=== PATIENT | male | born 1995 | race American Indian/Alaskan Native ===

== ENCOUNTER 2018-01-09 19:54 | Inpatient (IN) | payer MEDICAID, OTHER ==
[2018-01-09] MEDS ORDERED: HumuLIN R IV ONE (20:05)
[2018-01-09] MEDS ORDERED: NACL 0.9% 1000 ML 2,000 ML IV ONE (20:05)
--- NOTE | 2018-01-09 20:21 | Emergency Department Report ---
ED General Adult HPI - General Chief complaint: Hyperglycemia Stated complaint: HYPERGLYCEMIC Time Seen by Provider: 01/09/18 20:00 Source: patient Mode of arrival: Ambulatory Limitations: No Limitations - History of Present Illness Initial comments: Mr. Julien is 22 yo male who presents in diabetic crisis. Mr. Julien was admitted on 12/28 and discharged 12/30 for HHS and new onset diabetes. He has been ill for approximately one week. He gives limited hx due to respiratory distress and severe illness. EMS brought patient to ED. Previous EMR under medical record #[id number] - Related Data Home Medications Medication Instructions Recorded Confirmed Last Taken Insulin Glargine,Hum.rec.anlog 15 unit SQ BID 01/09/18 01/09/18 Unknown [Lantus] Metformin HCl 500 mg PO BID 01/09/18 01/09/18 Unknown Allergies Allergy/AdvReac Type Severity Reaction Status Date / Time No Known Allergies Allergy Unverified 07/05/14 13:13 ED Review of Systems ROS: Stated complaint: HYPERGLYCEMIC Other details as noted in HPI Comment: Unobtainable due to pts medical conditions ED Past Medical Hx - Past Medical History Hx Diabetes: Yes - Social History Smoking Status: Never Smoker Substance Use Type: None - Medications Home Medications: Home Medications Medication Instructions Recorded Confirmed Last Taken Type Insulin Glargine,Hum.rec.anlog 15 unit SQ BID 01/09/18 01/09/18 Unknown History [Lantus] Metformin HCl 500 mg PO BID 01/09/18 01/09/18 Unknown History ED Physical Exam - General Limitations: No Limitations General appearance: alert, in distress, other (Kussmaul Respirations) - Head Head exam: Present: atraumatic, normocephalic - Eye Eye exam: Present: normal appearance, PERRL - ENT ENT exam: Present: mucous membranes dry, normal external ear exam - Neck Neck exam: Present: normal inspection. Absent: tenderness, meningismus - Respiratory Respiratory exam: Present: normal lung sounds bilaterally, respiratory distress , accessory muscle use. Absent: wheezes, rales, rhonchi - Cardiovascular Cardiovascular Exam: Present: normal rhythm, tachycardia, normal heart sounds. Absent: systolic murmur, diastolic murmur, rubs, gallop - GI/Abdominal GI/Abdominal exam: Present: soft, normal bowel sounds, other (abdominal retractions). Absent: distended, tenderness, guarding, rebound - Rectal Rectal exam: Present: deferred - Extremities Exam Extremities exam: Present: normal inspection - Back Exam Back exam: Present: normal inspection - Neurological Exam Neurological exam: Present: alert, oriented X3 - Psychiatric Psychiatric exam: Present: flat affect - Skin Skin exam: Present: warm, dry, intact, normal color. Absent: rash ED Course Vital Signs 01/09/18 01/09/18 01/09/18 20:03 20:04 20:41 Pulse Rate 138 H 136 H Respiratory 46 H 22 Rate Blood Pressure O2 Sat by Pulse 99 99 Oximetry 01/09/18 21:01 Pulse Rate 133 H Respiratory 35 H Rate Blood Pressure 155/53 O2 Sat by Pulse 99 Oximetry ED Medical Decision Making - Lab Data Result diagrams: 01/09/18 20:15 01/09/18 20:15 - EKG Data Rate: tachycardia - EKG Data 01/09/18 21:18 Time obtained 2051 sinus tachycardia rate 130 bpm nl axis increased amplitude T waves no ST elevation 01/09/18 21:24 - Radiology Data Radiology results: report reviewed pCXR: no acute process - Medical Decision Making Mr. Julien is a 22 yo male who has new onset diabetes, DKA after recent hospitalization. Elevated WBC noted without focus of infection TERRANCE with hyperkalemia addressed with insulin. Dr. Camarena silver designer consulted Dr. Montesinos hospitalist agreed to admit Critical Care Time: Yes Critical care time in (mins) excluding proc time.: 40 Critical care attestation.: If time is entered above; I have spent that time in minutes in the direct care of this critically ill patient, excluding procedure time. Critical Care Time: 40 minutes of critical care time excluding procedures were used in the care of the patient. Patient required multiple assessments and interventions. I reviewed the electronic medical record. I spoke with consultants involved in the care of the patient. ED Disposition Clinical Impression: DKA (diabetic ketoacidoses), TERRANCE (acute kidney injury) Disposition: OP ADMIT IP TO THIS HOSP Is pt being admited?: Yes Does the pt Need Aspirin: No Condition: Stable
[2018-01-09 20:24] LABS: Mean Corpuscular HGB Conc 30 % (32-34); Mean Corpuscular Hemoglobin 28 pg (28-32); Mean Corpuscular Volume 95 fl (84-94); Platelet Count 306 K/mm3 (140-440); Red Blood Count 5.47 M/mm3 (3.65-5.03); Red Cell Distribution Width 15.4 % (13.2-15.2)
[2018-01-09 20:39] LABS: Hematocrit 51.9 % (35.5-45.6); Hemoglobin 15.4 gm/dl (11.8-15.2)
[2018-01-09 20:41] LABS: Albumin 4.4 g/dL (3.9-5)
[2018-01-09 20:58] LABS: Bilirubin,Urine NEG (Negative); Blood,Urine MOD (Negative); Color,Urine Straw (Yellow); Mucus,Urine FEW /HPF; Urobilinogen,Urine < 2.0 mg/dL (<2.0)
--- NOTE | 2018-01-09 20:59 | XRay Report ---
FINAL REPORT PROCEDURE: XR CHEST 1V AP TECHNIQUE: Chest radiograph anteroposterior view. CPT 34902 HISTORY: DKA dyspnea COMPARISON: No prior studies are available for comparison. FINDINGS: Heart: Normal. Mediastinum/Vessels: Normal. Lungs/Pleural space: Normal. Bony thorax: No acute osseous abnormality. Life support devices: None. IMPRESSION: No acute cardiopulmonary abnormality.
[2018-01-09] MEDS ORDERED: CALCIUM GLUCONATE 1,000 MG in NACL 0.9% 100 ML IV ONE (21:25)
[2018-01-09 21:48] LABS: Basophils % (Manual) 0 % (0.0-1.8); Total Cells Counted 100
[2018-01-09 21:49] LABS: RBC Morphology Normal
[2018-01-09] MEDS ORDERED: NACL 0.9% 1000 ML 1,000 ML IV ONE (21:54)
[2018-01-09] MEDS ORDERED: SODIUM BICARBONATE IV ONE ×3 (21:55→23:02)
[2018-01-09] MEDS ORDERED: ZOFRAN IV PRN (21:55)
[2018-01-09] MEDS ORDERED: SODIUM CHLORIDE FLUSH SYRINGE 10 ML IV PRN (21:55)
[2018-01-09] MEDS ORDERED: MORPHINE IV PRN (21:55)
[2018-01-09] MEDS ORDERED: TYLENOL PO PRN (21:55)
[2018-01-09] MEDS ORDERED: D50W (25GM) Syringe IV PRN (21:56)
--- NOTE | 2018-01-09 21:59 | History and Physical Report ---
History of Present Illness Date of examination: 01/09/18 History of present illness: 22-year-old man with a history of hypertension, diabetes mellitus emergency room with complaints of nausea vomiting, decreased energy 2 days. He's had multiple episodes of nausea and vomiting, stating he's compliant with his medication. Also complaining of abdominal pain in the epigastric area which she describes as sharp, constant pain, intensity 6/10, no radiation, he cannot identify exacerbating or relieving factors. Review of systems Constitutional: no weight loss, chills, fever Ears, eyes, nose, mouth and throat: no nasal congestion, no nasal discharge, no sinus pressure, no vision change, no red eye. Neck: No neck pain or rigidity. Cardiovascular: no chest pain, palpitations Respiratory: no cough, shortness of breath Gastrointestinal: no hematochezia Genitourinary : no frequency , no hematuria Musculoskeletal: no joint swelling or muscle ache Integumentary: no rash, no pruritis Neurological: no parathesias, no numbness, no focal weakness Endocrine: no cold or heat intolerance, no polyuria or polydipsia Hematologic/Lymphatic: no easy bruising, no easy bleeding, no gland swelling Allergic/Immunologic: no urticaria, no angioedema. PAST MEDICAL HISTORY: Hypertension, diabetes PAST SURGICAL HISTORY: None SOCIAL HISTORY: No alcohol, no drugs, tobacco FAMILY HISTORY: Hypertension, diabetes Medications and Allergies Allergies Allergy/AdvReac Type Severity Reaction Status Date / Time No Known Allergies Allergy Unverified 07/05/14 13:13 Home Medications Medication Instructions Recorded Confirmed Last Taken Type Insulin Glargine,Hum.rec.anlog 15 unit SQ BID 01/09/18 01/09/18 Unknown History [Lantus] Metformin HCl 500 mg PO BID 01/09/18 01/09/18 Unknown History Active Meds: Active Medications Acetaminophen (Tylenol) 650 mg PO Q4H PRN PRN Reason: Pain MILD(1-3)/Fever >100.5/DOW Dextrose (D50w (25gm) Syringe) 0 ml IV ONCE PRN PRN Reason: Hypoglycemia Enoxaparin Sodium (Lovenox) 30 mg SUB-Q QDAY ANGÉLICA Insulin Human Regular 100 (units/ Sodium Chloride) 100 mls @ 10 mls/hr IV TITR ANGÉLICA; Protocol Sodium Chloride (Nacl 0.9% 1000 Ml) 1,000 mls @ 500 mls/hr IV DIRECT ANGÉLICA Sodium Chloride (Nacl 0.9% 1000 Ml) 1,000 mls @ 150 mls/hr IV DIRECT ANGÉLICA Sodium Chloride (Nacl 0.9% 1000 Ml) 1,000 mls @ 999 mls/hr IV ONCE ONE Stop: 01/09/18 22:54 Last Admin: 01/09/18 21:58 Dose: 999 mls/hr Potassium Chloride/Dextrose/Sod Cl (D5w/0.45% Nacl/Kcl 20 Meq) 20 meq in 1,000 mls @ 150 mls/hr IV DIRECT ANGÉLICA Ceftriaxone Sodium (Rocephin/Ns 1 Gm/50 Ml) 1 gm in 50 mls @ 100 mls/hr IV Q24HR ANGÉLICA; Protocol Morphine Sulfate (Morphine) 2 mg IV Q4H PRN PRN Reason: Pain, Moderate (4-6) Ondansetron HCl (Zofran) 4 mg IV Q4H PRN PRN Reason: Nausea And Vomiting Sodium Bicarbonate (Sodium Bicarbonate) 50 meq IV ONCE ONE Stop: 01/09/18 21:56 Sodium Chloride (Sodium Chloride Flush Syringe 10 Ml) 10 ml IV BID ANGÉLICA Sodium Chloride (Sodium Chloride Flush Syringe 10 Ml) 10 ml IV PRN PRN PRN Reason: LINE FLUSH Exam - Physical Exam Narrative exam: Gen. appearance: Patient lying in bed, no apparent distress HEENT: Normocephalic, atraumatic, pupils equally round and reactive to light, extraocular movement intact, and no sclericterus,. No JVD or thyromegaly or nodule,neck supple, no carotid bruit ,mucous membranes moist, no exudate or erythema Heart: S1, S2, regular rate and rhythm Lungs: Clear bilaterally, breathing comfortable Abdomen: Positive bowel sounds, non-tender, nondistended, no organomegaly Extremity:no edema cyanosis, clubbing Skin: no rash, dry, warm Neuro: Oriented 3, cranial nerves II-12 intact, speech is fluent, motor and sensory intact - Constitutional Vitals: Temp Pulse Resp BP Pulse Ox 133 H 35 H 155/53 99 01/09/18 21:01 01/09/18 21:01 01/09/18 21:01 01/09/18 21:01 Results - Labs CBC & Chem 7: 01/09/18 20:15 01/10/18 00:11 Labs: Abnormal lab results 01/09/18 01/09/18 01/09/18 Range/Units 20:02 20:15 20:15 WBC 25.1 H (4.5-11.0) K/mm3 RBC 5.47 H (3.65-5.03) M/mm3 Hgb 15.4 H (11.8-15.2) gm/dl Hct 51.9 H (35.5-45.6) % MCV 95 H (84-94) fl MCHC 30 L (32-34) % RDW 15.4 H (13.2-15.2) % Seg Neuts % (Manual) 83.0 H (40.0-70.0) % Lymphocytes % (Manual) 9.0 L (13.4-35.0) % Seg Neutrophils # Man 20.8 H (1.8-7.7) K/mm3 Monocytes # (Manual) 1.8 H (0.0-0.8) K/mm3 POC ABG pH 7.040 L (7.35-7.45) POC ABG pCO2 6.6 L (35-45) POC ABG pO2 155 H (80-105) Sodium (137-145) mmol/L Potassium (3.6-5.0) mmol/L Chloride (98-107) mmol/L Carbon Dioxide (22-30) mmol/L BUN (9-20) mg/dL Creatinine (0.8-1.5) mg/dL Glucose (75-100) mg/dL POC Glucose (70-105) Hemoglobin A1c 10.4 H (4-6) % Calcium (8.4-10.2) mg/dL Phosphorus (2.5-4.5) mg/dL Magnesium (1.7-2.3) mg/dL Alkaline Phosphatase (35-129) units/L Total Protein (6.3-8.2) g/dL 01/09/18 01/09/18 01/09/18 Range/Units 20:15 20:15 21:55 WBC (4.5-11.0) K/mm3 RBC (3.65-5.03) M/mm3 Hgb (11.8-15.2) gm/dl Hct (35.5-45.6) % MCV (84-94) fl MCHC (32-34) % RDW (13.2-15.2) % Seg Neuts % (Manual) (40.0-70.0) % Lymphocytes % (Manual) (13.4-35.0) % Seg Neutrophils # Man (1.8-7.7) K/mm3 Monocytes # (Manual) (0.0-0.8) K/mm3 POC ABG pH (7.35-7.45) POC ABG pCO2 (35-45) POC ABG pO2 (80-105) Sodium 133 L (137-145) mmol/L Potassium 6.2 H* (3.6-5.0) mmol/L Chloride 85.1 L (98-107) mmol/L Carbon Dioxide 5 L* (22-30) mmol/L BUN 36 H (9-20) mg/dL Creatinine 2.0 H (0.8-1.5) mg/dL Glucose 768 H* (75-100) mg/dL POC Glucose > 500 H (70-105) Hemoglobin A1c (4-6) % Calcium 11.0 H (8.4-10.2) mg/dL Phosphorus 7.50 H (2.5-4.5) mg/dL Magnesium 3.40 H (1.7-2.3) mg/dL Alkaline Phosphatase 139 H (35-129) units/L Total Protein 9.7 H (6.3-8.2) g/dL Assessment and Plan Assessment DKA Abdominal pain SIRS Renal insufficiency, probably acute Severe metabolic reveals acidosis Dehydration Hypertension Plan Admit medicine DKA protocol with insulin drip Start IV fluids, monitor serial chemistries, fingersticks Check CAT scan of the abdomen and pelvis Start IV Rocephin, follow cultures Consult critical care DVT prophylaxis
[2018-01-09] MEDS ORDERED: D5W/0.45% NACL/KCL 20 MEQ 20 MEQ/1,000 ML BAG IV SCH (22:00)
[2018-01-09] MEDS ORDERED: NACL 0.9% 1000 ML 1,000 ML IV SCH ×3 (22:00→23:00)
[2018-01-09] MEDS ORDERED: ROCEPHIN/NS 1 GM/50 ML 1 GM/50 ML BAG IV SCH (22:00)
[2018-01-09] MEDS: HumuLIN R 100 UNITS in NACL 0.9% 99 ML IV SCH (22:02)
--- NOTE | 2018-01-09 22:59 | Cat Scan Report ---
FINAL REPORT PROCEDURE: CT ABDOMEN PELVIS WO CON TECHNIQUE: Computerized axial tomography of the abdomen and pelvis was performed without intravenous contrast. This study is performed without intravascular contrast material and its sensitivity for abdominal and pelvic pathology, including neoplasms, inflammation, abscess, free fluid, thrombosis, arterial dissection and infarction, is reduced compared with a contrast enhanced study. HISTORY: abd pain COMPARISON: No prior studies are available for comparison. FINDINGS: Limited study due to breathing artifacts. Liver, spleen, pancreas and adrenal glands are within normal limits. Bilateral kidneys demonstrate normal density without calculi or hydronephrosis. Aorta is of normal caliber. There is no free fluid or free air. Gallbladder is unremarkable. Small bowel loops are within normal limits. Urinary bladder is moderately distended. Appendix is normal. IMPRESSION: Limited study due to breathing artifacts. No obvious acute intra-abdominal or pelvic pathology. Vertebral height is normal..
[2018-01-09] MEDS ORDERED: D5/0.45NS 1,000 ML IV SCH (23:00)
[2018-01-09] MEDS: SODIUM CHLORIDE FLUSH SYRINGE 10 ML IV SCH (23:06)
[2018-01-09] MEDS ORDERED: NACL 0.9% 1000 ML 1,000 ML ONE (23:46)
[2018-01-10 00:32] LABS: BUN/Creatinine Ratio 21; Blood Urea Nitrogen 34 mg/dL (9-20); Calcium 9.2 mg/dL (8.4-10.2); Hemolysis Index 61
[2018-01-10 00:44] LABS: BUN/Creatinine Ratio 21; Blood Urea Nitrogen 34 mg/dL (9-20); Calcium 9.5 mg/dL (8.4-10.2); Hemolysis Index 25
[2018-01-10] MEDS ORDERED: SODIUM BICARBONATE IV ONE ×3 (01:47→02:00)
[2018-01-10 02:20] LABS: BUN/Creatinine Ratio 22; Blood Urea Nitrogen 33 mg/dL (9-20); Calcium 9.9 mg/dL (8.4-10.2); Hemolysis Index 32
[2018-01-10] MEDS: HumuLIN R 100 UNITS in NACL 0.9% 99 ML IV SCH ×2 (03:34→22:56)
[2018-01-10 04:09] LABS: Hematocrit 43.3 % (35.5-45.6); Mean Corpuscular HGB Conc 32 % (32-34); Mean Corpuscular Hemoglobin 28 pg (28-32); Mean Corpuscular Volume 86 fl (84-94); Platelet Count 241 K/mm3 (140-440); Red Blood Count 5.03 M/mm3 (3.65-5.03); Red Cell Distribution Width 13.3 % (13.2-15.2)
[2018-01-10 04:21] LABS: BUN/Creatinine Ratio 21; Blood Urea Nitrogen 29 mg/dL (9-20); Hemolysis Index 10
[2018-01-10 05:09] LABS: Band Neutrophils # (Manual) 0.6 K/mm3; Basophils % (Manual) 0 % (0.0-1.8); Eosinophils % (Manual) 0 % (0.0-4.3); Large Platelets Rare; Platelet Estimate Cons; RBC Morphology Normal; Total Cells Counted 100
[2018-01-10] MEDS: D5/0.45NS 1,000 ML IV SCH ×2 (06:52→15:27)
[2018-01-10 07:45] LABS: BUN/Creatinine Ratio 21; Blood Urea Nitrogen 27 mg/dL (9-20); Hemolysis Index 23
[2018-01-10] MEDS ORDERED: LOVENOX SUB-Q SCH (10:00)
[2018-01-10] MEDS: LOVENOX SUB-Q SCH (11:36)
[2018-01-10] MEDS: ZESTRIL PO SCH (11:36)
[2018-01-10] MEDS: SODIUM CHLORIDE FLUSH SYRINGE 10 ML IV SCH ×2 (11:36→22:58)
--- NOTE | 2018-01-10 16:01 | Progress Note ---
Assessment and Plan Assessment and plan: 22-year-old man with a history of hypertension, diabetes mellitus emergency room with complaints of nausea vomiting, decreased energy 2 days. He's had multiple episodes of nausea and vomiting, stating he's compliant with his medication. Also complaining of abdominal pain in the epigastric area which she describes as sharp, constant pain, intensity 6/10, no radiation, he cannot identify exacerbating or relieving factors. DKA Abdominal pain SIRS Renal insufficiency, probably acute Severe metabolic reveals acidosis Dehydration Hypertension Plan Admit medicine DKA protocol with insulin drip Start IV fluids, monitor serial chemistries, fingersticks Check CAT scan of the abdomen and pelvis Start IV Rocephin, follow cultures Consult critical care DVT prophylaxis History Interval history: Patient was seen and examined. Follow-up on current diagnosis of dka. Overnight uneventful. Patient denies any chest pain, shortness breath, nausea/vomiting or severe headaches. Imaging, nursing note, chart, labs and old chart reviewed. Discussed with patient. Hospitalist Physical - Physical exam Narrative exam: GEN: WDWN, NAD, Awake, Alert, Orientated HEENT: NCAT, EOMI, PERRL, OP Clear NECK: supple, no adenopathy, no thyromegaly, no JVD CVS/HEART: RRR, normal S1S2, pulses present bilaterally CHEST/LUNGS: CTA B, Symmetrical chest expansion, good air entry bilaterally GI/Abdomen: soft, NTND, good bowel sounds, no guarding or rebound /Bladder: no suprapubic tenderness, no CVA or paraspinal tenderness EXT/Skin: no c/c/e, no obvious rash MSK: FROM x 4 Neuro: CN 2-12 grossly intact, no new focal deficits Psych: calm - Constitutional Vitals: Temp Pulse Resp BP Pulse Ox 101 H 17 125/76 99 01/10/18 11:36 01/10/18 08:01 01/10/18 11:36 01/10/18 08:01 Results - Labs CBC & Chem 7: 01/10/18 Unknown 01/10/18 05:59 Labs: Laboratory Last Values WBC 19.3 K/mm3 (4.5-11.0) H 01/10/18 Unknown RBC 5.03 M/mm3 (3.65-5.03) 01/10/18 Unknown Hgb 14.0 gm/dl (11.8-15.2) 01/10/18 Unknown Hct 43.3 % (35.5-45.6) D 01/10/18 Unknown MCV 86 fl (84-94) 01/10/18 Unknown MCH 28 pg (28-32) 01/10/18 Unknown MCHC 32 % (32-34) 01/10/18 Unknown RDW 13.3 % (13.2-15.2) 01/10/18 Unknown Plt Count 241 K/mm3 (140-440) 01/10/18 Unknown Add Manual Diff Complete 01/10/18 Unknown Total Counted 100 01/10/18 Unknown Seg Neuts % (Manual) 89.0 % (40.0-70.0) H 01/10/18 Unknown Band Neutrophils % 3.0 % 01/10/18 Unknown Lymphocytes % (Manual) 7.0 % (13.4-35.0) L 01/10/18 Unknown Reactive Lymphs % (Man) 0 % 01/10/18 Unknown Monocytes % (Manual) 1.0 % (0.0-7.3) 01/10/18 Unknown Eosinophils % (Manual) 0 % (0.0-4.3) 01/10/18 Unknown Basophils % (Manual) 0 % (0.0-1.8) 01/10/18 Unknown Metamyelocytes % 0 % 01/10/18 Unknown Myelocytes % 0 % 01/10/18 Unknown Promyelocytes % 0 % 01/10/18 Unknown Blast Cells % 0 % 01/10/18 Unknown Nucleated RBC % Not Reportable 01/10/18 Unknown Seg Neutrophils # Man 17.2 K/mm3 (1.8-7.7) H 01/10/18 Unknown Band Neutrophils # 0.6 K/mm3 01/10/18 Unknown Lymphocytes # (Manual) 1.4 K/mm3 (1.2-5.4) 01/10/18 Unknown Abs React Lymphs (Man) 0.0 K/mm3 01/10/18 Unknown Monocytes # (Manual) 0.2 K/mm3 (0.0-0.8) 01/10/18 Unknown Eosinophils # (Manual) 0.0 K/mm3 (0.0-0.4) 01/10/18 Unknown Basophils # (Manual) 0.0 K/mm3 (0.0-0.1) 01/10/18 Unknown Metamyelocytes # 0.0 K/mm3 01/10/18 Unknown Myelocytes # 0.0 K/mm3 01/10/18 Unknown Promyelocytes # 0.0 K/mm3 01/10/18 Unknown Blast Cells # 0.0 K/mm3 01/10/18 Unknown WBC Morphology Not Reportable 01/10/18 Unknown Hypersegmented Neuts Not Reportable 01/10/18 Unknown Hyposegmented Neuts Not Reportable 01/10/18 Unknown Hypogranular Neuts Not Reportable 01/10/18 Unknown Smudge Cells Not Reportable 01/10/18 Unknown Toxic Granulation Not Reportable 01/10/18 Unknown Toxic Vacuolation Not Reportable 01/10/18 Unknown Dohle Bodies Not Reportable 01/10/18 Unknown Pelger-Huet Anomaly Not Reportable 01/10/18 Unknown Eduardo Rods Not Reportable 01/10/18 Unknown Platelet Estimate Cons 01/10/18 Unknown Clumped Platelets Not Reportable 01/10/18 Unknown Plt Clumps, EDTA Not Reportable 01/10/18 Unknown Large Platelets Rare 01/10/18 Unknown Giant Platelets Not Reportable 01/10/18 Unknown Platelet Satelliting Not Reportable 01/10/18 Unknown Plt Morphology Comment Not Reportable 01/10/18 Unknown RBC Morphology Normal 01/10/18 Unknown Dimorphic RBCs Not Reportable 01/10/18 Unknown Polychromasia Not Reportable 01/10/18 Unknown Hypochromasia Not Reportable 01/10/18 Unknown Poikilocytosis Not Reportable 01/10/18 Unknown Anisocytosis Not Reportable 01/10/18 Unknown Microcytosis Not Reportable 01/10/18 Unknown Macrocytosis Not Reportable 01/10/18 Unknown Spherocytes Not Reportable 01/10/18 Unknown Pappenheimer Bodies Not Reportable 01/10/18 Unknown Sickle Cells Not Reportable 01/10/18 Unknown Target Cells Not Reportable 01/10/18 Unknown Tear Drop Cells Not Reportable 01/10/18 Unknown Ovalocytes Not Reportable 01/10/18 Unknown Helmet Cells Not Reportable 01/10/18 Unknown Barros-Hewlett Bodies Not Reportable 01/10/18 Unknown Midway Rings Not Reportable 01/10/18 Unknown Maritza Cells Not Reportable 01/10/18 Unknown Bite Cells Not Reportable 01/10/18 Unknown Crenated Cell Not Reportable 01/10/18 Unknown Elliptocytes Not Reportable 01/10/18 Unknown Acanthocytes (Spur) Not Reportable 01/10/18 Unknown Rouleaux Not Reportable 01/10/18 Unknown Hemoglobin C Crystals Not Reportable 01/10/18 Unknown Schistocytes Not Reportable 01/10/18 Unknown Malaria parasites Not Reportable 01/10/18 Unknown Wagner Bodies Not Reportable 01/10/18 Unknown Hem Pathologist Commnt No 01/10/18 Unknown POC ABG pH 7.040 (7.35-7.45) L 01/09/18 20:02 POC ABG pCO2 6.6 (35-45) L 01/09/18 20:02 POC ABG pO2 155 (80-105) H 01/09/18 20:02 POC ABG HCO3 1.8 01/09/18 20:02 POC ABG Total CO2 < 5 01/09/18 20:02 POC ABG O2 Sat 98 01/09/18 20:02 POC ABG Base Excess -29 01/09/18 20:02 FiO2 21 % 01/09/18 20:02 Sodium 142 mmol/L (137-145) 01/10/18 05:59 Potassium 4.9 mmol/L (3.6-5.0) 01/10/18 05:59 Chloride 104.9 mmol/L (98-107) 01/10/18 05:59 Carbon Dioxide 13 mmol/L (22-30) L 01/10/18 05:59 Anion Gap 29 mmol/L 01/10/18 05:59 BUN 27 mg/dL (9-20) H 01/10/18 05:59 Creatinine 1.3 mg/dL (0.8-1.5) 01/10/18 05:59 Estimated GFR > 60 ml/min 01/10/18 05:59 BUN/Creatinine Ratio 21 % 01/10/18 05:59 Glucose 243 mg/dL (75-100) H 01/10/18 05:59 POC Glucose 158 (70-105) H 01/10/18 15:25 Hemoglobin A1c 10.4 % (4-6) H 01/09/18 20:15 Lactic Acid 1.70 mmol/L (0.7-2.0) 01/10/18 03:42 Calcium 10.0 mg/dL (8.4-10.2) 01/10/18 05:59 Phosphorus 4.80 mg/dL (2.5-4.5) H D 01/09/18 22:08 Magnesium 3.10 mg/dL (1.7-2.3) H 01/09/18 22:08 Total Bilirubin 0.40 mg/dL (0.1-1.2) 01/09/18 20:15 AST 9 units/L (5-40) 01/09/18 20:15 ALT 18 units/L (7-56) 01/09/18 20:15 Alkaline Phosphatase 139 units/L (35-129) H 01/09/18 20:15 Troponin T < 0.010 ng/mL (0.00-0.029) 01/09/18 20:15 Total Protein 9.7 g/dL (6.3-8.2) H 01/09/18 20:15 Albumin 4.4 g/dL (3.9-5) 01/09/18 20:15 Albumin/Globulin Ratio 0.8 % 01/09/18 20:15 Urine Color Straw (Yellow) 01/09/18 20:28 Urine Turbidity Clear (Clear) 01/09/18 20: Urine pH 5.0 (5.0-7.0) 01/09/18 20: Ur Specific [place] 1.018 (1.003-1.030) 01/09/18 20:28 Urine Protein 100 mg/dl mg/dL (Negative) 01/09/18 20:28 Urine Glucose (UA) >=500 mg/dL (Negative) 01/09/18 20:28 Urine Ketones 80 mg/dL (Negative) 01/09/18 20:28 Urine Blood Mod (Negative) 01/09/18 20:28 Urine Nitrite Neg (Negative) 01/09/18 20: Urine Bilirubin Neg (Negative) 01/09/18 20: Urine Urobilinogen < 2.0 mg/dL (<2.0) 01/09/18 20:28 Ur Leukocyte Esterase Neg (Negative) 01/09/18 20:28 Urine WBC (Auto) 5.0 /HPF (0.0-6.0) 01/09/18 20:28 Urine RBC (Auto) 1.0 /HPF (0.0-6.0) 01/09/18 20:28 U Epithel Cells (Auto) < 1.0 /HPF (0-13.0) 01/09/18 20:28 Urine Mucus Few /HPF 01/09/18 20:28
[2018-01-10 16:39] LABS: BUN/Creatinine Ratio 18; Blood Urea Nitrogen 20 mg/dL (9-20); Hemolysis Index 5
[2018-01-10] MEDS ORDERED: D10W 1,000 ML IV SCH (17:00)
[2018-01-10 21:44] LABS: BUN/Creatinine Ratio 18; Blood Urea Nitrogen 18 mg/dL (9-20); Calcium 9.9 mg/dL (8.4-10.2); Hemolysis Index 96
[2018-01-10 23:05] LABS: BUN/Creatinine Ratio 15; Blood Urea Nitrogen 17 mg/dL (9-20); Calcium 9.4 mg/dL (8.4-10.2); Hemolysis Index 78
[2018-01-11] MEDS: D5/0.45NS 1,000 ML IV SCH ×2 (03:30→11:20)
[2018-01-11 05:40] LABS: Hematocrit 41.4 % (35.5-45.6); Hemoglobin 13.2 gm/dl (11.8-15.2); Mean Corpuscular HGB Conc 32 % (32-34); Mean Corpuscular Hemoglobin 28 pg (28-32); Mean Corpuscular Volume 87 fl (84-94); Platelet Count 209 K/mm3 (140-440); Red Blood Count 4.76 M/mm3 (3.65-5.03); Red Cell Distribution Width 13.9 % (13.2-15.2)
[2018-01-11 06:03] LABS: BUN/Creatinine Ratio 15; Blood Urea Nitrogen 18 mg/dL (9-20); Calcium 9.7 mg/dL (8.4-10.2); Hemolysis Index 60
[2018-01-11] MEDS: HumuLIN R 100 UNITS in NACL 0.9% 99 ML IV SCH (08:00)
[2018-01-11] MEDS: ZESTRIL PO SCH (09:33)
[2018-01-11] MEDS: LOVENOX SUB-Q SCH ×2 (09:33→10:42)
[2018-01-11] MEDS: SODIUM CHLORIDE FLUSH SYRINGE 10 ML IV SCH ×2 (09:39→21:16)
[2018-01-11] MEDS: PEPCID IV SCH ×2 (11:23→21:16)
--- NOTE | 2018-01-11 11:32 | Progress Note ---
Assessment and Plan Assessment and plan: Patient is a 22-year-old man with a history of hypertension, diabetes mellitus type 1 and GERD who pw nausea vomiting, decreased energy. He was found to be in DKA and admitted to ICU. DKA: treat with insulin drip and ivf Abdominal pain with gastritis: treat with IV pepcid GERD: start pepcid SIRS, noninfectious, wbc decreasing, empiric Start IV Rocephin, follow cultures Renal insufficiency, probably acute Severe metabolic reveals acidosis Dehydration: treat with IV fluids Hypertension: treat with prn iv antihypertensives History Interval history: Patient was seen and examined. Follow-up on current diagnosis of DKA. Overnight uneventful. Patient denies any chest pain, shortness breath, nausea/vomiting or severe headaches. Imaging, nursing note, chart, labs and old chart reviewed. Discussed with patient. Mother at bedside. Hospitalist Physical - Physical exam Narrative exam: GEN: illappearing, wdwn, gyncomastia, NAD, Awake, Alert, Orientated x 3 HEENT: NCAT, EOMI, PERRL, OP Clear NECK: supple, no adenopathy, no thyromegaly, no JVD CVS/HEART: RRR, normal S1S2, pulses present bilaterally CHEST/LUNGS: CTA B, Symmetrical chest expansion, good air entry bilaterally GI/Abdomen: soft, epigastric tenderness, good bowel sounds, no guarding or rebound /Bladder: no suprapubic tenderness, no CVA or paraspinal tenderness EXT/Skin: no c/c/e, no obvious rash MSK: FROM x 4 Neuro: CN 2-12 grossly intact, no new focal deficits Psych: calm - Constitutional Vitals: Temp Pulse Resp BP Pulse Ox 97.0 F L 91 H 13 165/112 99 01/11/18 08:00 01/11/18 11:00 01/11/18 11:00 01/11/18 11:00 01/11/18 11:00 Results - Labs CBC & Chem 7: 01/11/18 04:36 01/11/18 04:36 Labs: Laboratory Last Values WBC 11.5 K/mm3 (4.5-11.0) H 01/11/18 04:36 RBC 4.76 M/mm3 (3.65-5.03) 01/11/18 04:36 Hgb 13.2 gm/dl (11.8-15.2) 01/11/18 04:36 Hct 41.4 % (35.5-45.6) 01/11/18 04:36 MCV 87 fl (84-94) 01/11/18 04:36 MCH 28 pg (28-32) 01/11/18 04:36 MCHC 32 % (32-34) 01/11/18 04:36 RDW 13.9 % (13.2-15.2) 01/11/18 04:36 Plt Count 209 K/mm3 (140-440) 01/11/18 04:36 Add Manual Diff Complete 01/10/18 Unknown Total Counted 100 01/10/18 Unknown Seg Neuts % (Manual) 89.0 % (40.0-70.0) H 01/10/18 Unknown Band Neutrophils % 3.0 % 01/10/18 Unknown Lymphocytes % (Manual) 7.0 % (13.4-35.0) L 01/10/18 Unknown Reactive Lymphs % (Man) 0 % 01/10/18 Unknown Monocytes % (Manual) 1.0 % (0.0-7.3) 01/10/18 Unknown Eosinophils % (Manual) 0 % (0.0-4.3) 01/10/18 Unknown Basophils % (Manual) 0 % (0.0-1.8) 01/10/18 Unknown Metamyelocytes % 0 % 01/10/18 Unknown Myelocytes % 0 % 01/10/18 Unknown Promyelocytes % 0 % 01/10/18 Unknown Blast Cells % 0 % 01/10/18 Unknown Nucleated RBC % Not Reportable 01/10/18 Unknown Seg Neutrophils # Man 17.2 K/mm3 (1.8-7.7) H 01/10/18 Unknown Band Neutrophils # 0.6 K/mm3 01/10/18 Unknown Lymphocytes # (Manual) 1.4 K/mm3 (1.2-5.4) 01/10/18 Unknown Abs React Lymphs (Man) 0.0 K/mm3 01/10/18 Unknown Monocytes # (Manual) 0.2 K/mm3 (0.0-0.8) 01/10/18 Unknown Eosinophils # (Manual) 0.0 K/mm3 (0.0-0.4) 01/10/18 Unknown Basophils # (Manual) 0.0 K/mm3 (0.0-0.1) 01/10/18 Unknown Metamyelocytes # 0.0 K/mm3 01/10/18 Unknown Myelocytes # 0.0 K/mm3 01/10/18 Unknown Promyelocytes # 0.0 K/mm3 01/10/18 Unknown Blast Cells # 0.0 K/mm3 01/10/18 Unknown WBC Morphology Not Reportable 01/10/18 Unknown Hypersegmented Neuts Not Reportable 01/10/18 Unknown Hyposegmented Neuts Not Reportable 01/10/18 Unknown Hypogranular Neuts Not Reportable 01/10/18 Unknown Smudge Cells Not Reportable 01/10/18 Unknown Toxic Granulation Not Reportable 01/10/18 Unknown Toxic Vacuolation Not Reportable 01/10/18 Unknown Dohle Bodies Not Reportable 01/10/18 Unknown Pelger-Huet Anomaly Not Reportable 01/10/18 Unknown Eduardo Rods Not Reportable 01/10/18 Unknown Platelet Estimate Cons 01/10/18 Unknown Clumped Platelets Not Reportable 01/10/18 Unknown Plt Clumps, EDTA Not Reportable 01/10/18 Unknown Large Platelets Rare 01/10/18 Unknown Giant Platelets Not Reportable 01/10/18 Unknown Platelet Satelliting Not Reportable 01/10/18 Unknown Plt Morphology Comment Not Reportable 01/10/18 Unknown RBC Morphology Normal 01/10/18 Unknown Dimorphic RBCs Not Reportable 01/10/18 Unknown Polychromasia Not Reportable 01/10/18 Unknown Hypochromasia Not Reportable 01/10/18 Unknown Poikilocytosis Not Reportable 01/10/18 Unknown Anisocytosis Not Reportable 01/10/18 Unknown Microcytosis Not Reportable 01/10/18 Unknown Macrocytosis Not Reportable 01/10/18 Unknown Spherocytes Not Reportable 01/10/18 Unknown Pappenheimer Bodies Not Reportable 01/10/18 Unknown Sickle Cells Not Reportable 01/10/18 Unknown Target Cells Not Reportable 01/10/18 Unknown Tear Drop Cells Not Reportable 01/10/18 Unknown Ovalocytes Not Reportable 01/10/18 Unknown Helmet Cells Not Reportable 01/10/18 Unknown [place] Bodies Not Reportable 01/10/18 Unknown [place] Rings Not Reportable 01/10/18 Unknown [place] Cells Not Reportable 01/10/18 Unknown Bite Cells Not Reportable 01/10/18 Unknown Crenated Cell Not Reportable 01/10/18 Unknown Elliptocytes Not Reportable 01/10/18 Unknown Acanthocytes (Spur) Not Reportable 01/10/18 Unknown Rouleaux Not Reportable 01/10/18 Unknown Hemoglobin C Crystals Not Reportable 01/10/18 Unknown Schistocytes Not Reportable 01/10/18 Unknown Malaria parasites Not Reportable 01/10/18 Unknown Wagner Bodies Not Reportable 01/10/18 Unknown Hem Pathologist Commnt No 01/10/18 Unknown POC ABG pH 7.040 (7.35-7.45) L 01/09/18 20:02 POC ABG pCO2 6.6 (35-45) L 01/09/18 20:02 POC ABG pO2 155 (80-105) H 01/09/18 20:02 POC ABG HCO3 1.8 01/09/18 20:02 POC ABG Total CO2 < 5 01/09/18 20:02 POC ABG O2 Sat 98 01/09/18 20:02 POC ABG Base Excess -29 01/09/18 20:02 FiO2 21 % 01/09/18 20:02 Sodium 133 mmol/L (137-145) L 01/11/18 04:36 Potassium 5.2 mmol/L (3.6-5.0) H 01/11/18 04:36 Chloride 90.2 mmol/L (98-107) L 01/11/18 04:36 Carbon Dioxide 11 mmol/L (22-30) L 01/11/18 04:36 Anion Gap 37 mmol/L 01/11/18 04:36 BUN 18 mg/dL (9-20) 01/11/18 04:36 Creatinine 1.2 mg/dL (0.8-1.5) 01/11/18 04:36 Estimated GFR > 60 ml/min 01/11/18 04:36 BUN/Creatinine Ratio 15 % 01/11/18 04:36 Glucose 425 mg/dL (75-100) H 01/11/18 04:36 POC Glucose 291 (70-105) H 01/11/18 09:42 Hemoglobin A1c 10.4 % (4-6) H 01/09/18 20:15 Lactic Acid 1.70 mmol/L (0.7-2.0) 01/10/18 03:42 Calcium 9.7 mg/dL (8.4-10.2) 01/11/18 04:36 Phosphorus 4.80 mg/dL (2.5-4.5) H D 01/09/18 22:08 Magnesium 2.50 mg/dL (1.7-2.3) H 01/11/18 04:36 Total Bilirubin 0.40 mg/dL (0.1-1.2) 01/09/18 20:15 AST 9 units/L (5-40) 01/09/18 20:15 ALT 18 units/L (7-56) 01/09/18 20:15 Alkaline Phosphatase 139 units/L (35-129) H 01/09/18 20:15 Troponin T < 0.010 ng/mL (0.00-0.029) 01/09/18 20:15 Total Protein 9.7 g/dL (6.3-8.2) H 01/09/18 20:15 Albumin 4.4 g/dL (3.9-5) 01/09/18 20:15 Albumin/Globulin Ratio 0.8 % 01/09/18 20:15 Urine Color Straw (Yellow) 01/09/18 20:28 Urine Turbidity Clear (Clear) 01/09/18 20:28 Urine pH 5.0 (5.0-7.0) 01/09/18 20:28 Ur Specific [place] 1.018 (1.003-1.030) 01/09/18 20:28 Urine Protein 100 mg/dl mg/dL (Negative) 01/09/18 20:28 Urine Glucose (UA) >=500 mg/dL (Negative) 01/09/18 20:28 Urine Ketones 80 mg/dL (Negative) 01/09/18 20:28 Urine Blood Mod (Negative) 01/09/18 20:28 Urine Nitrite Neg (Negative) 01/09/18 20: Urine Bilirubin Neg (Negative) 01/09/18 20:28 Urine Urobilinogen < 2.0 mg/dL (<2.0) 01/09/18 20:28 Ur Leukocyte Esterase Neg (Negative) 01/09/18 20:28 Urine WBC (Auto) 5.0 /HPF (0.0-6.0) 01/09/18 20:28 Urine RBC (Auto) 1.0 /HPF (0.0-6.0) 01/09/18 20:28 U Epithel Cells (Auto) < 1.0 /HPF (0-13.0) 01/09/18 20:28 Urine Mucus Few /HPF 01/09/18 20:28
[2018-01-11 16:25] LABS: BUN/Creatinine Ratio 15; Blood Urea Nitrogen 12 mg/dL (9-20); Calcium 9.7 mg/dL (8.4-10.2); Hemolysis Index 17
[2018-01-11] MEDS ORDERED: REGLAN IV PRN (17:08)
[2018-01-11] MEDS ORDERED: D50W (25GM) Syringe IV PRN (17:09)
[2018-01-11] MEDS ORDERED: LANTUS SUB-Q ONE (18:00)
[2018-01-11] MEDS: PROTONIX PO SCH (18:05)
[2018-01-11] MEDS: HumaLOG SUB-Q SCH (18:06)
[2018-01-12] MEDS: HumaLOG SUB-Q SCH ×5 (00:24→23:08)
[2018-01-12] MEDS: ZESTRIL PO SCH (11:54)
[2018-01-12] MEDS: PEPCID IV SCH ×2 (11:54→22:24)
[2018-01-12] MEDS: LOVENOX SUB-Q SCH (11:54)
[2018-01-12] MEDS: PROTONIX PO SCH (11:54)
[2018-01-12] MEDS: SODIUM CHLORIDE FLUSH SYRINGE 10 ML IV SCH ×2 (11:55→22:24)
--- NOTE | 2018-01-12 12:47 | Progress Note ---
Assessment and Plan Assessment and plan: Patient is a 22-year-old man with a history of hypertension, diabetes mellitus type 1 and GERD who pw nausea vomiting, decreased energy. He was found to be in DKA and admitted to ICU. DKA, resolved Abdominal pain with gastritis: treat with IV pepcid, no more Metformin GERD: start pepcid SIRS, noninfectious, wbc decreasing, empiric Start IV Rocephin, follow cultures Renal insufficiency, probably acute Severe metabolic reveals acidosis,resolved Dehydration: treat with IV fluids Hypertension: treat with prn iv antihypertensives Advance diet today and if he tolerates then d/c tomorrow. No more metformin. History Interval history: Patient was seen and examined. Follow-up on current diagnosis of dka, resolved. Overnight uneventful. Patient denies any chest pain, shortness breath, nausea/ vomiting or severe headaches. Imaging, nursing note, chart, labs and old chart reviewed. Discussed with patient. Mother at bedside. Tolerating a diet Hospitalist Physical - Physical exam Narrative exam: GEN: WDWN, NAD, Awake, Alert, Orientated HEENT: NCAT, EOMI, PERRL, OP Clear NECK: supple, no adenopathy, no thyromegaly, no JVD CVS/HEART: RRR, normal S1S2, pulses present bilaterally CHEST/LUNGS: CTA B, Symmetrical chest expansion, good air entry bilaterally GI/Abdomen: soft, NTND, good bowel sounds, no guarding or rebound /Bladder: no suprapubic tenderness, no CVA or paraspinal tenderness EXT/Skin: no c/c/e, no obvious rash MSK: FROM x 4 Neuro: CN 2-12 grossly intact, no new focal deficits Psych: calm - Constitutional Vitals: Temp Pulse Resp BP Pulse Ox 97.7 F 86 16 148/94 98 01/11/18 16:00 01/12/18 11:54 01/11/18 22:00 01/12/18 11:54 01/11/18 20:56 Results - Labs CBC & Chem 7: 01/11/18 04:36 01/11/18 15:20 Labs: Laboratory Last Values WBC 11.5 K/mm3 (4.5-11.0) H 01/11/18 04:36 RBC 4.76 M/mm3 (3.65-5.03) 01/11/18 04:36 Hgb 13.2 gm/dl (11.8-15.2) 01/11/18 04:36 Hct 41.4 % (35.5-45.6) 01/11/18 04:36 MCV 87 fl (84-94) 01/11/18 04:36 MCH 28 pg (28-32) 01/11/18 04:36 MCHC 32 % (32-34) 01/11/18 04:36 RDW 13.9 % (13.2-15.2) 01/11/18 04:36 Plt Count 209 K/mm3 (140-440) 01/11/18 04:36 Add Manual Diff Complete 01/10/18 Unknown Total Counted 100 01/10/18 Unknown Seg Neuts % (Manual) 89.0 % (40.0-70.0) H 01/10/18 Unknown Band Neutrophils % 3.0 % 01/10/18 Unknown Lymphocytes % (Manual) 7.0 % (13.4-35.0) L 01/10/18 Unknown Reactive Lymphs % (Man) 0 % 01/10/18 Unknown Monocytes % (Manual) 1.0 % (0.0-7.3) 01/10/18 Unknown Eosinophils % (Manual) 0 % (0.0-4.3) 01/10/18 Unknown Basophils % (Manual) 0 % (0.0-1.8) 01/10/18 Unknown Metamyelocytes % 0 % 01/10/18 Unknown Myelocytes % 0 % 01/10/18 Unknown Promyelocytes % 0 % 01/10/18 Unknown Blast Cells % 0 % 01/10/18 Unknown Nucleated RBC % Not Reportable 01/10/18 Unknown Seg Neutrophils # Man 17.2 K/mm3 (1.8-7.7) H 01/10/18 Unknown Band Neutrophils # 0.6 K/mm3 01/10/18 Unknown Lymphocytes # (Manual) 1.4 K/mm3 (1.2-5.4) 01/10/18 Unknown Abs React Lymphs (Man) 0.0 K/mm3 01/10/18 Unknown Monocytes # (Manual) 0.2 K/mm3 (0.0-0.8) 01/10/18 Unknown Eosinophils # (Manual) 0.0 K/mm3 (0.0-0.4) 01/10/18 Unknown Basophils # (Manual) 0.0 K/mm3 (0.0-0.1) 01/10/18 Unknown Metamyelocytes # 0.0 K/mm3 01/10/18 Unknown Myelocytes # 0.0 K/mm3 01/10/18 Unknown Promyelocytes # 0.0 K/mm3 01/10/18 Unknown Blast Cells # 0.0 K/mm3 01/10/18 Unknown WBC Morphology Not Reportable 01/10/18 Unknown Hypersegmented Neuts Not Reportable 01/10/18 Unknown Hyposegmented Neuts Not Reportable 01/10/18 Unknown Hypogranular Neuts Not Reportable 01/10/18 Unknown Smudge Cells Not Reportable 01/10/18 Unknown Toxic Granulation Not Reportable 01/10/18 Unknown Toxic Vacuolation Not Reportable 01/10/18 Unknown Dohle Bodies Not Reportable 01/10/18 Unknown Pelger-Huet Anomaly Not Reportable 01/10/18 Unknown Eduardo Rods Not Reportable 01/10/18 Unknown Platelet Estimate Cons 01/10/18 Unknown Clumped Platelets Not Reportable 01/10/18 Unknown Plt Clumps, EDTA Not Reportable 01/10/18 Unknown Large Platelets Rare 01/10/18 Unknown Giant Platelets Not Reportable 01/10/18 Unknown Platelet Satelliting Not Reportable 01/10/18 Unknown Plt Morphology Comment Not Reportable 01/10/18 Unknown RBC Morphology Normal 01/10/18 Unknown Dimorphic RBCs Not Reportable 01/10/18 Unknown Polychromasia Not Reportable 01/10/18 Unknown Hypochromasia Not Reportable 01/10/18 Unknown Poikilocytosis Not Reportable 01/10/18 Unknown Anisocytosis Not Reportable 01/10/18 Unknown Microcytosis Not Reportable 01/10/18 Unknown Macrocytosis Not Reportable 01/10/18 Unknown Spherocytes Not Reportable 01/10/18 Unknown Pappenheimer Bodies Not Reportable 01/10/18 Unknown Sickle Cells Not Reportable 01/10/18 Unknown Target Cells Not Reportable 01/10/18 Unknown Tear Drop Cells Not Reportable 01/10/18 Unknown Ovalocytes Not Reportable 01/10/18 Unknown Helmet Cells Not Reportable 01/10/18 Unknown Barros-[place] Bodies Not Reportable 01/10/18 Unknown [place] Rings Not Reportable 01/10/18 Unknown [place] Cells Not Reportable 01/10/18 Unknown Bite Cells Not Reportable 01/10/18 Unknown Crenated Cell Not Reportable 01/10/18 Unknown Elliptocytes Not Reportable 01/10/18 Unknown Acanthocytes (Spur) Not Reportable 01/10/18 Unknown Rouleaux Not Reportable 01/10/18 Unknown Hemoglobin C Crystals Not Reportable 01/10/18 Unknown Schistocytes Not Reportable 01/10/18 Unknown Malaria parasites Not Reportable 01/10/18 Unknown [place] Bodies Not Reportable 01/10/18 Unknown Hem Pathologist Commnt No 01/10/18 Unknown POC ABG pH 7.040 (7.35-7.45) L 01/09/18 20:02 POC ABG pCO2 6.6 (35-45) L 01/09/18 20:02 POC ABG pO2 155 (80-105) H 01/09/18 20:02 POC ABG HCO3 1.8 01/09/18 20:02 POC ABG Total CO2 < 5 01/09/18 20:02 POC ABG O2 Sat 98 01/09/18 20:02 POC ABG Base Excess -29 01/09/18 20:02 FiO2 21 % 01/09/18 20:02 Sodium 136 mmol/L (137-145) L 01/11/18 15:20 Potassium 3.7 mmol/L (3.6-5.0) D 01/11/18 15:20 Chloride 102.5 mmol/L (98-107) 01/11/18 15:20 Carbon Dioxide 23 mmol/L (22-30) D 01/11/18 15:20 Anion Gap 14 mmol/L 01/11/18 15:20 BUN 12 mg/dL (9-20) 01/11/18 15:20 Creatinine 0.8 mg/dL (0.8-1.5) 01/11/18 15:20 Estimated GFR > 60 ml/min 01/11/18 15:20 BUN/Creatinine Ratio 15 % 01/11/18 15:20 Glucose 164 mg/dL (75-100) H 01/11/18 15:20 POC Glucose 251 (70-105) H 01/12/18 06:37 Hemoglobin A1c 10.4 % (4-6) H 01/09/18 20:15 Lactic Acid 1.70 mmol/L (0.7-2.0) 01/10/18 03:42 Calcium 9.7 mg/dL (8.4-10.2) 01/11/18 15:20 Phosphorus 4.80 mg/dL (2.5-4.5) H D 01/09/18 22:08 Magnesium 2.50 mg/dL (1.7-2.3) H 01/11/18 04:36 Total Bilirubin 0.40 mg/dL (0.1-1.2) 01/09/18 20:15 AST 9 units/L (5-40) 01/09/18 20:15 ALT 18 units/L (7-56) 01/09/18 20:15 Alkaline Phosphatase 139 units/L (35-129) H 01/09/18 20:15 Troponin T < 0.010 ng/mL (0.00-0.029) 01/09/18 20:15 Total Protein 9.7 g/dL (6.3-8.2) H 01/09/18 20:15 Albumin 4.4 g/dL (3.9-5) 01/09/18 20:15 Albumin/Globulin Ratio 0.8 % 01/09/18 20:15 Urine Color Straw (Yellow) 01/09/18 20:28 Urine Turbidity Clear (Clear) 01/09/18 20:28 Urine pH 5.0 (5.0-7.0) 01/09/18 20:28 Ur Specific [place] 1.018 (1.003-1.030) 01/09/18 20:28 Urine Protein 100 mg/dl mg/dL (Negative) 01/09/18 20:28 Urine Glucose (UA) >=500 mg/dL (Negative) 01/09/18 20:28 Urine Ketones 80 mg/dL (Negative) 01/09/18 20:28 Urine Blood Mod (Negative) 01/09/18 20:28 Urine Nitrite Neg (Negative) 01/09/18 20:28 Urine Bilirubin Neg (Negative) 01/09/18 20:28 Urine Urobilinogen < 2.0 mg/dL (<2.0) 01/09/18 20:28 Ur Leukocyte Esterase Neg (Negative) 01/09/18 20:28 Urine WBC (Auto) 5.0 /HPF (0.0-6.0) 01/09/18 20:28 Urine RBC (Auto) 1.0 /HPF (0.0-6.0) 01/09/18 20:28 U Epithel Cells (Auto) < 1.0 /HPF (0-13.0) 01/09/18 20:28 Urine Mucus Few /HPF 01/09/18 20:28
[2018-01-12 13:47] LABS: Hematocrit 41.1 % (35.5-45.6); Hemoglobin 13.5 gm/dl (11.8-15.2); Mean Corpuscular HGB Conc 33 % (32-34); Mean Corpuscular Hemoglobin 28 pg (28-32); Mean Corpuscular Volume 85 fl (84-94); Platelet Count 205 K/mm3 (140-440); Red Blood Count 4.82 M/mm3 (3.65-5.03); Red Cell Distribution Width 13.5 % (13.2-15.2)
[2018-01-12 13:50] LABS: BUN/Creatinine Ratio 18; Blood Urea Nitrogen 14 mg/dL (9-20); Calcium 9.6 mg/dL (8.4-10.2); Hemolysis Index 2
[2018-01-13] MEDS: HumaLOG SUB-Q SCH ×4 (06:32→18:06)
[2018-01-13 08:21] LABS: Hematocrit 41.3 % (35.5-45.6); Hemoglobin 13.7 gm/dl (11.8-15.2); Mean Corpuscular HGB Conc 33 % (32-34); Mean Corpuscular Hemoglobin 28 pg (28-32); Mean Corpuscular Volume 84 fl (84-94); Platelet Count 199 K/mm3 (140-440); Red Cell Distribution Width 13.3 % (13.2-15.2)
[2018-01-13 08:52] LABS: BUN/Creatinine Ratio 16; Blood Urea Nitrogen 13 mg/dL (9-20); Calcium 9.9 mg/dL (8.4-10.2); Hemolysis Index 9
[2018-01-13] MEDS: PEPCID IV SCH (10:31)
[2018-01-13] MEDS: ZESTRIL PO SCH (10:32)
[2018-01-13] MEDS: PROTONIX PO SCH ×2 (10:33→10:39)
[2018-01-13] MEDS: LOVENOX SUB-Q SCH (10:40)
[2018-01-13] MEDS: SODIUM CHLORIDE FLUSH SYRINGE 10 ML IV SCH (10:40)
--- NOTE | 2018-01-13 11:43 | Discharge Summary ---
Providers - Providers Date of Admission: 01/09/18 21:55 Date of discharge: 01/13/18 Attending physician: TANMAY DONG Primary care physician: [employer] Hospitalization Condition: Stable Hospital course: Assessment and plan: Patient is a 22-year-old man with a history of hypertension, diabetes mellitus type 1 and GERD who pw nausea vomiting, decreased energy. He was found to be in DKA and admitted to ICU. DKA, resolved Uncontrolled type 1 DM: no more metformin, continue Lantus Abdominal pain with gastritis: treat with IV pepcid, no more Metformin GERD: start pepcid SIRS, noninfectious, wbc decreasing, empiric Start IV Rocephin, follow cultures Renal insufficiency, probably acute Severe metabolic reveals acidosis,resolved Dehydration: treat with IV fluids Hypertension: treat with prn iv antihypertensives Tolerated diet and wants to go home today. Disposition: DC-01 TO HOME OR SELFCARE Time spent for discharge: 35 minutes Core Measure Documentation - Palliative Care Palliative Care/ Comfort Measures: Not Applicable - Core Measures Any of the following diagnoses?: none - VTE Discharge Requirements Deep Vein Thrombosis/Pulmonary Embolism Present on Admission: No Has pt received <5 days of overlap therapy or INR<2.0: No Anticoagulant overlap therapy prescribed at discharge: No Contraindication No Overlap Therapy order at DC: Not Indicated Exam - Physical Exam Narrative exam: GEN: WDWN, NAD, Awake, Alert, Orientated x 3 HEENT: NCAT, EOMI, PERRL, OP Clear NECK: supple, no adenopathy, no thyromegaly, no JVD CVS/HEART: RRR, normal S1S2, pulses present bilaterally CHEST/LUNGS: CTA B, Symmetrical chest expansion, good air entry bilaterally GI/Abdomen: soft, NTND, good bowel sounds, no guarding or rebound /Bladder: no suprapubic tenderness, no CVA or paraspinal tenderness EXT/Skin: no c/c/e, no obvious rash MSK: FROM x 4 Neuro: CN 2-12 grossly intact, no new focal deficits Psych: calm - Constitutional Vitals: Temp Pulse Resp BP Pulse Ox 98.1 F 90 18 138/82 100 01/13/18 06:14 01/13/18 10:32 01/13/18 06:14 01/13/18 10:32 01/13/18 06:14 Plan Activity: other (no strenous activity until cleared by PCP) Diet: low salt, diabetic Special Instructions: record blood sugar diary (check blood sugar 3 times a day , with breakfast, lunch and dinner) Additional Instructions: No metformin anymore Follow up with: JONES ANGELO [Staff Physician] - 7 Days Prescriptions: Insulin Glargine,Hum.rec.anlog [Lantus] 20 unit SQ QHS #1 vial Insulin Regular, Human [Novolin R] 1 units SQ AC PRN #1 vial PRN Reason: Hyperglycemia Lisinopril [Zestril TAB] 5 mg PO QDAY #30 tablet Pantoprazole [Protonix TAB] 40 mg PO QDAY #30 tablet
[2018-01-13] MEDS ORDERED: LANTUS SUB-Q SCH (13:00)
[2018-01-13] MEDS ORDERED: HumaLOG SUB-Q ONE (14:23)
--- NOTE | 2018-01-13 14:23 | Progress Note ---
Assessment and Plan Assessment and plan: Patient is a 22-year-old man with a history of hypertension, diabetes mellitus type 1 and GERD who pw nausea vomiting, decreased energy. He was found to be in DKA and admitted to ICU. DKA, resolved Abdominal pain with gastritis: treat with IV pepcid, no more Metformin GERD: start pepcid SIRS, noninfectious, wbc decreasing, empiric Start IV Rocephin, follow cultures Renal insufficiency, probably acute Severe metabolic reveals acidosis,resolved Dehydration: treat with IV fluids Hypertension: treat with prn iv antihypertensives Disposition: Adjust insulin, d/c home if bg under 300. History Interval history: Patient was seen and examined. Follow-up on current diagnosis of dka, resolved. Overnight uneventful. Patient denies any chest pain, shortness breath, nausea/ vomiting or severe headaches. Imaging, nursing note, chart, labs and old chart reviewed. Discussed with patient. Mother at bedside. Tolerating a diet Hospitalist Physical - Physical exam Narrative exam: GEN: WDWN, NAD, Awake, Alert, Orientated x 3 HEENT: NCAT, EOMI, PERRL, OP Clear NECK: supple, no adenopathy, no thyromegaly, no JVD CVS/HEART: RRR, normal S1S2, pulses present bilaterally CHEST/LUNGS: CTA B, Symmetrical chest expansion, good air entry bilaterally GI/Abdomen: soft, NTND, good bowel sounds, no guarding or rebound /Bladder: no suprapubic tenderness, no CVA or paraspinal tenderness EXT/Skin: no c/c/e, no obvious rash MSK: FROM x 4 Neuro: CN 2-12 grossly intact, no new focal deficits Psych: calm - Constitutional Vitals: Temp Pulse Resp BP Pulse Ox 97.8 F 74 20 149/96 97 01/13/18 12:08 01/13/18 12:08 01/13/18 12:08 01/13/18 12:08 01/13/18 12:08 Results - Labs CBC & Chem 7: 01/13/18 07:41 01/13/18 07:41 Labs: Laboratory Last Values WBC 7.4 K/mm3 (4.5-11.0) 01/13/18 07:41 RBC 4.90 M/mm3 (3.65-5.03) 01/13/18 07:41 Hgb 13.7 gm/dl (11.8-15.2) 01/13/18 07:41 Hct 41.3 % (35.5-45.6) 18 07:41 MCV 84 fl (84-94) 18 07:41 MCH 28 pg (28-32) 18 07:41 MCHC 33 % (32-34) 01/13/18 07:41 RDW 13.3 % (13.2-15.2) 01/13/18 07:41 Plt Count 199 K/mm3 (140-440) 01/13/18 07:41 Add Manual Diff Complete 01/10/18 Unknown Total Counted 100 01/10/18 Unknown Seg Neuts % (Manual) 89.0 % (40.0-70.0) H 01/10/18 Unknown Band Neutrophils % 3.0 % 01/10/18 Unknown Lymphocytes % (Manual) 7.0 % (13.4-35.0) L 01/10/18 Unknown Reactive Lymphs % (Man) 0 % 01/10/18 Unknown Monocytes % (Manual) 1.0 % (0.0-7.3) 01/10/18 Unknown Eosinophils % (Manual) 0 % (0.0-4.3) 01/10/18 Unknown Basophils % (Manual) 0 % (0.0-1.8) 01/10/18 Unknown Metamyelocytes % 0 % 01/10/18 Unknown Myelocytes % 0 % 01/10/18 Unknown Promyelocytes % 0 % 01/10/18 Unknown Blast Cells % 0 % 01/10/18 Unknown Nucleated RBC % Not Reportable 01/10/18 Unknown Seg Neutrophils # Man 17.2 K/mm3 (1.8-7.7) H 01/10/18 Unknown Band Neutrophils # 0.6 K/mm3 01/10/18 Unknown Lymphocytes # (Manual) 1.4 K/mm3 (1.2-5.4) 01/10/18 Unknown Abs React Lymphs (Man) 0.0 K/mm3 01/10/18 Unknown Monocytes # (Manual) 0.2 K/mm3 (0.0-0.8) 01/10/18 Unknown Eosinophils # (Manual) 0.0 K/mm3 (0.0-0.4) 01/10/18 Unknown Basophils # (Manual) 0.0 K/mm3 (0.0-0.1) 01/10/18 Unknown Metamyelocytes # 0.0 K/mm3 01/10/18 Unknown Myelocytes # 0.0 K/mm3 01/10/18 Unknown Promyelocytes # 0.0 K/mm3 01/10/18 Unknown Blast Cells # 0.0 K/mm3 01/10/18 Unknown WBC Morphology Not Reportable 01/10/18 Unknown Hypersegmented Neuts Not Reportable 01/10/18 Unknown Hyposegmented Neuts Not Reportable 01/10/18 Unknown Hypogranular Neuts Not Reportable 01/10/18 Unknown Smudge Cells Not Reportable 01/10/18 Unknown Toxic Granulation Not Reportable 01/10/18 Unknown Toxic Vacuolation Not Reportable 01/10/18 Unknown Dohle Bodies Not Reportable 01/10/18 Unknown Pelger-Huet Anomaly Not Reportable 01/10/18 Unknown Eduardo Rods Not Reportable 01/10/18 Unknown Platelet Estimate Cons 01/10/18 Unknown Clumped Platelets Not Reportable 01/10/18 Unknown Plt Clumps, EDTA Not Reportable 01/10/18 Unknown Large Platelets Rare 01/10/18 Unknown Giant Platelets Not Reportable 01/10/18 Unknown Platelet Satelliting Not Reportable 01/10/18 Unknown Plt Morphology Comment Not Reportable 01/10/18 Unknown RBC Morphology Normal 01/10/18 Unknown Dimorphic RBCs Not Reportable 01/10/18 Unknown Polychromasia Not Reportable 01/10/18 Unknown Hypochromasia Not Reportable 01/10/18 Unknown Poikilocytosis Not Reportable 01/10/18 Unknown Anisocytosis Not Reportable 01/10/18 Unknown Microcytosis Not Reportable 01/10/18 Unknown Macrocytosis Not Reportable 01/10/18 Unknown Spherocytes Not Reportable 01/10/18 Unknown Pappenheimer Bodies Not Reportable 01/10/18 Unknown Sickle Cells Not Reportable 01/10/18 Unknown Target Cells Not Reportable 01/10/18 Unknown Tear Drop Cells Not Reportable 01/10/18 Unknown Ovalocytes Not Reportable 01/10/18 Unknown Helmet Cells Not Reportable 01/10/18 Unknown [place] Bodies Not Reportable 01/10/18 Unknown [place] Rings Not Reportable 01/10/18 Unknown [place] Cells Not Reportable 01/10/18 Unknown Bite Cells Not Reportable 01/10/18 Unknown Crenated Cell Not Reportable 01/10/18 Unknown Elliptocytes Not Reportable 01/10/18 Unknown Acanthocytes (Spur) Not Reportable 01/10/18 Unknown Rouleaux Not Reportable 01/10/18 Unknown Hemoglobin C Crystals Not Reportable 01/10/18 Unknown Schistocytes Not Reportable 01/10/18 Unknown Malaria parasites Not Reportable 01/10/18 Unknown [place] Bodies Not Reportable 01/10/18 Unknown Hem Pathologist Commnt No 01/10/18 Unknown POC ABG pH 7.040 (7.35-7.45) L 01/09/18 20:02 POC ABG pCO2 6.6 (35-45) L 01/09/18 20:02 POC ABG pO2 155 (80-105) H 01/09/18 20:02 POC ABG HCO3 1.8 01/09/18 20:02 POC ABG Total CO2 < 5 01/09/18 20:02 POC ABG O2 Sat 98 01/09/18 20:02 POC ABG Base Excess -29 01/09/18 20:02 FiO2 21 % 01/09/18 20:02 Sodium 136 mmol/L (137-145) L 01/13/18 07:41 Potassium 3.8 mmol/L (3.6-5.0) 01/13/18 07:41 Chloride 96.3 mmol/L (98-107) L 01/13/18 07:41 Carbon Dioxide 21 mmol/L (22-30) L 01/13/18 07:41 Anion Gap 23 mmol/L 01/13/18 07:41 BUN 13 mg/dL (9-20) 01/13/18 07:41 Creatinine 0.8 mg/dL (0.8-1.5) 01/13/18 07:41 Estimated GFR > 60 ml/min 01/13/18 07:41 BUN/Creatinine Ratio 16 % 01/13/18 07:41 Glucose 373 mg/dL (75-100) H 01/13/18 07:41 POC Glucose 395 (70-105) H 01/13/18 11:22 Hemoglobin A1c 10.4 % (4-6) H 01/09/18 20:15 Lactic Acid 1.70 mmol/L (0.7-2.0) 01/10/18 03:42 Calcium 9.9 mg/dL (8.4-10.2) 01/13/18 07:41 Phosphorus 4.80 mg/dL (2.5-4.5) H D 01/09/18 22:08 Magnesium 2.50 mg/dL (1.7-2.3) H 01/11/18 04:36 Total Bilirubin 0.40 mg/dL (0.1-1.2) 01/09/18 20:15 AST 9 units/L (5-40) 01/09/18 20:15 ALT 18 units/L (7-56) 01/09/18 20:15 Alkaline Phosphatase 139 units/L (35-129) H 01/09/18 20:15 Troponin T < 0.010 ng/mL (0.00-0.029) 01/09/18 20:15 Total Protein 9.7 g/dL (6.3-8.2) H 01/09/18 20:15 Albumin 4.4 g/dL (3.9-5) 01/09/18 20:15 Albumin/Globulin Ratio 0.8 % 01/09/18 20:15 Urine Color Straw (Yellow) 01/09/18 20:28 Urine Turbidity Clear (Clear) 01/09/18 20:28 Urine pH 5.0 (5.0-7.0) 01/09/18 20:28 Ur Specific [place] 1.018 (1.003-1.030) 01/09/18 20:28 Urine Protein 100 mg/dl mg/dL (Negative) 01/09/18 20:28 Urine Glucose (UA) >=500 mg/dL (Negative) 01/09/18 20:28 Urine Ketones 80 mg/dL (Negative) 01/09/18 20:28 Urine Blood Mod (Negative) 01/09/18 20:28 Urine Nitrite Neg (Negative) 01/09/18 20:28 Urine Bilirubin Neg (Negative) 01/09/18 20:28 Urine Urobilinogen < 2.0 mg/dL (<2.0) 01/09/18 20:28 Ur Leukocyte Esterase Neg (Negative) 01/09/18 20:28 Urine WBC (Auto) 5.0 /HPF (0.0-6.0) 01/09/18 20:28 Urine RBC (Auto) 1.0 /HPF (0.0-6.0) 01/09/18 20:28 U Epithel Cells (Auto) < 1.0 /HPF (0-13.0) 01/09/18 20:28 Urine Mucus Few /HPF 01/09/18 20:28
[2018-01-13 18:19] VITALS: BP 139/94
[2018-01-13] MEDS ORDERED: PEPCID PO SCH (22:00)
== END 2018-01-13 17:30 | disposition home or self-care (01) | DRG 682 ==
LOC: ED 19:54 → CC1 21:55 → 3A 01-11 19:46
PROVIDERS: ADMIT Internal Medicine; ATTEND Internal Medicine
PROC: 4A033R1 Measurement of Arterial Saturation, Peripheral, Percutaneous Approach (ICD-10-PCS; principal; 2018-01-09)
DX: N17.9 Acute kidney failure, unspecified (principal); E10.10 Type 1 diabetes mellitus with ketoacidosis without coma; R65.10 Systemic inflammatory response syndrome (SIRS) of non-infectious origin without acute organ dysfunction; I10 Essential (primary) hypertension; K21.9 Gastro-esophageal reflux disease without esophagitis; K29.70 Gastritis, unspecified, without bleeding; E86.0 Dehydration; Z82.49 Family history of ischemic heart disease and other diseases of the circulatory system; Z83.3 Family history of diabetes mellitus; Z79.4 Long term (current) use of insulin
CPT/HCPCS: 36415; 71045; 74176; 80048; 80053; 81001; 82140; 82803; 82962; 83036; 83735; 84100; 84484; 85007; 85025; 85027; 87040; 87116; 93005; 93010; J0610; J0696; J1650; J1815; J2270; J2405; J7030